=== PATIENT | female | born 1955 | race Caucasian/White ===

== ENCOUNTER 2022-05-12 11:32 | Observation (INO) | payer OTHER ==
[~2022-05-12] VITALS: Ht 149.9 cm; Wt 75.5 kg
[2022-05-12 14:10] LABS: COLLECTION METHOD CLEAN CATCH
[2022-05-12 14:14] LABS: URINE APPEARANCE Clear (CLEAR/HAZY); URINE COLOR Yellow (YELLOW)
[2022-05-12 14:15] LABS: PH 5.5 (5.0-8.5); URINE BLOOD Negative (NEGATIVE); URINE GLUCOSE Negative (NEGATIVE); URINE KETONE Negative (NEGATIVE); URINE NITRATE Negative (NEGATIVE); URINE PROTEIN(semi-quant) Negative (NEGATIVE); URINE UROBILINOGEN 0.2 E.U/dL (0.2-1.0)
[2022-05-12 14:16] LABS: BASO # 0.1 K/mm3 (0.0-0.2); BASO % 0.8 % (0.0-2.0); EOS # 0.2 K/mm3 (0.0-0.7); EOS % 1.9 % (0.0-4.0); GRAN # 6.3 K/mm3 (1.4-6.5); GRAN % 60.4 % (42.2-75.2); LYMPH # 3.1 K/mm3 (1.2-3.4); LYMPH % 29.3 % (20.0-51.0); MEAN CELL VOLUME 70 fl (80.0-100.0); MEAN CORPUSCULAR HGB CONC 27 g/dl (33.0-37.0); MEAN PLATELET VOLUME 11.2 fl (7.4-10.4); MONO # 0.8 K/mm3 (0.1-0.6); MONO % 7.3 % (1.7-9.3); PLATELET COUNT 529 K/mm3 (130-400); RED BLOOD COUNT 3.19 M/mm3 (4.10-5.30); REDCELL DISTRIBUTION WIDTH-CV 18.8 % (11.5-14.5)
[2022-05-12 14:19] LABS: SQUAMOUS EPITHELIAL 0-2 /hpf (0-10); URINE BACTERIA None Seen /hpf (NONE SEEN); URINE RBC None Seen /hpf (0-2)
[2022-05-12 14:25] LABS: HEMATOCRIT 22.4 % (37.0-47.0); MEAN CORPUSCULAR HEMOGLOBIN 19 pg (27-31)
[2022-05-12 14:31] LABS: ALANINE AMINOTRANSFERASE 28 U/L (0-55); ALBUMIN 3.5 gm/dL (3.4-4.8); ALKALINE PHOSPHATASE 96 U/L (40-150); ANION GAP 8 mmol/L (7-16); AST,SGOT 24 U/L (5-34); BILIRUBIN,TOTAL 0.4 mg/dL (0.2-1.2); BLOOD UREA NITROGEN 15 mg/dL (10-20); CALCIUM 8.9 mg/dL (8.4-10.2); CARBON DIOXIDE 20 mmol/L (23-31); CHLORIDE 109 mmol/L (98-107); CREATININE, serum 0.63 mg/dL (0.57-1.11); GLUCOSE 102 mg/dL (70-99); POTASSIUM 3.9 mmol/L (3.5-4.5); SODIUM 137 mmol/L (136-145)
[2022-05-12 14:41] LABS: TROPONIN-I < 0.010 ng/mL (0.00-0.033)
[2022-05-12 17:23] VITALS: BP 139/73; PULSE 79; TEMP 97.9
[2022-05-12] MEDS ORDERED: SYNTHROID0.05 MG/TA PO (17:58)
[2022-05-12] MEDS ORDERED: TOPROL XL 50MG50 MG PO (17:58)
[2022-05-12] MEDS ORDERED: VASOTEC 5MG5 MG/TAB PO (18:00)
[2022-05-12] MEDS ORDERED: PRILOSEC10 MG/Pack PO (18:00)
[2022-05-12] MEDS ORDERED: ASPIRIN 81M81 MG/TA2 PO (18:01)
[2022-05-12] MEDS ORDERED: JANUMET 1000 MG1 TA1 PO (18:03)
[2022-05-12] MEDS ORDERED: ZOCOR 40MG40 MG PO (18:03)
[2022-05-12 20:43] VITALS: BP 133/40; PULSE 71; TEMP 97.5
[2022-05-12 22:21] VITALS: BP 116/44; PULSE 80; TEMP 97.8
[2022-05-12 22:36] VITALS: BP 110/41; BP 110/81; PULSE 80; TEMP 98.3
[2022-05-12 23:06] VITALS: BP 136/44; PULSE 82; TEMP 98.2
[2022-05-13] VITALS (11 sets, daily range): BP systolic 105–129; BP diastolic 44–66; PULSE 72–80; TEMP 97.7–98.7
[2022-05-13 04:24] LABS: BASO # 0.1 K/mm3 (0.0-0.2); BASO % 0.9 % (0.0-2.0); EOS # 0.2 K/mm3 (0.0-0.7); GRAN # 6.1 K/mm3 (1.4-6.5); GRAN % 65.4 % (42.2-75.2); LYMPH # 2.3 K/mm3 (1.2-3.4); LYMPH % 24.1 % (20.0-51.0); MEAN CELL VOLUME 72 fl (80.0-100.0); MEAN CORPUSCULAR HGB CONC 29 g/dl (33.0-37.0); MEAN PLATELET VOLUME 11.3 fl (7.4-10.4); MONO # 0.7 K/mm3 (0.1-0.6); MONO % 7.4 % (1.7-9.3); RED BLOOD COUNT 3.82 M/mm3 (4.10-5.30); REDCELL DISTRIBUTION WIDTH-CV 21.2 % (11.5-14.5)
[2022-05-13 04:30] LABS: HEMATOCRIT 27.4 % (37.0-47.0); HEMOGLOBIN 7.9 g/dl (12.5-16.0); MEAN CORPUSCULAR HEMOGLOBIN 21 pg (27-31); PLATELET COUNT 421 K/mm3 (130-400)
[2022-05-13 04:43] LABS: CALCIUM 8.5 mg/dL (8.4-10.2); CREATININE, serum 0.55 mg/dL (0.57-1.11); MAGNESIUM 1.8 mg/dL (1.6-2.6); POTASSIUM 3.8 mmol/L (3.5-4.5)
--- NOTE | 2022-05-13 06:27 | NUR ---
PATIENT RESTED QUIETLY THIS SHIFT. PATIENT HAD NO COMPLAINTS OF PAIN AND RECEIVED NO PRN MEDICATIONS. PATIENT COMPLETED BOWEL PREP AND RECEIVED TWO UNITS OF BLOOD WITH NO DIFFICULTY.
[2022-05-13 07:17] LABS: HEMATOCRIT 26.7 % (37.0-47.0); HEMOGLOBIN 7.9 g/dl (12.5-16.0)
--- NOTE | 2022-05-13 08:07 | NUR ---
Talked with Dr. Lincoln about blood transfusion and hgb 7.9 and EGD/colonoscopy intervention today. Order to wait blood transfusion after procedure.
--- NOTE | 2022-05-13 08:37 | NUR ---
Patient is resting in bed, alert and oriented x 4, do not complains of pain, nause or vomiting. States she has not noted blood in stools or other source. Receiving 1/2 NS 75 ml/hr. Telemetry in place NSR. Aware of procedure and blood transfusion later today. Assessment completed, meds provided. No other needs at this time. Call light within reach.
--- NOTE | 2022-05-13 09:23 | NUR ---
Initial visit; Patient [place] speaking. [employer] made the sign of the cross and she understood and folded her hands in prayer. [employer] prayed and she thanked [employer] by smiling and saying God bless.
--- NOTE | 2022-05-13 11:40 | NUR ---
Patient came back from procedure, VSS. Denies any pain, N/V.
--- NOTE | 2022-05-13 16:33 | NUR ---
Pt and sister were provided with discharge information, all questions answered. IV access was discontinued. Pt was transfered to the ER entrance by Belén SANDOVAL.
== END 2022-05-13 16:30 | disposition home or self-care (01) ==
LOC: COL.ER 11:32 → MEDICAL 16:47 → COL.ER 16:47 → MEDICAL 05-13 11:33
PROVIDERS: Physician Assistant; ADMIT Internal Medicine
DX: D50.0 Iron deficiency anemia secondary to blood loss (chronic) (principal); C18.2 Malignant neoplasm of ascending colon; C18.7 Malignant neoplasm of sigmoid colon; K63.89 Other specified diseases of intestine; A04.8 Other specified bacterial intestinal infections; I10 Essential (primary) hypertension; E11.9 Type 2 diabetes mellitus without complications; E03.9 Hypothyroidism, unspecified; E78.5 Hyperlipidemia, unspecified; R11.2 Nausea with vomiting, unspecified; Z79.84 Long term (current) use of oral hypoglycemic drugs; Z79.890 Hormone replacement therapy; Z28.310 Unvaccinated for COVID-19; Z79.899 Other long term (current) drug therapy; Z28.9 Immunization not carried out for unspecified reason
CPT/HCPCS: C9113; G0378; J1815; J2704; P9016; Q9967

== ENCOUNTER → 2022-12-15 | Outpatient (CLI) | payer OTHER ==
[~2022-12-15] MED LIST: ASPIRIN 81M81 MG/TA2 PO; JANUMET 1000 MG1 TA1 PO; NORCO 325 MG-51 TAB PO; PRILOSEC10 MG/Pack PO; SYNTHROID0.05 MG/TA PO; TOPROL XL 50MG50 MG PO; VASOTEC 10M10 MG/TAB PO; VASOTEC 5MG5 MG/TAB PO; ZOCOR 40MG40 MG PO
== END ==
LOC: COL.RAD 08:16
DX: C18.9 Malignant neoplasm of colon, unspecified (principal); Z90.49 Acquired absence of other specified parts of digestive tract
CPT/HCPCS: Q9967

== ENCOUNTER → 2023-06-27 | Outpatient (CLI) | payer OTHER | LOC: CANSCHCLI → COL.RAD 10:02 | DX: C18.8 Malignant neoplasm of overlapping sites of colon (principal) | CPT/HCPCS: Q9967 ==